=== PATIENT | male | born 1950 | race African-American/Black ===

== ENCOUNTER 2020-07-25 08:46 | Outpatient (CLI) | payer MEDICARE ==
[2020-07-25] VITALS (14 sets, daily range): BP systolic 114–148; BP diastolic 74–99
[~2020-07-25] VITALS: Ht 167.6 cm; Wt 68.9 kg
[2020-07-25] MEDS ORDERED: fentaNYL PF VIAL 100 MCG/2 ML VIAL ONE (09:35)
[2020-07-25] MEDS ORDERED: LIDOCAINE WITH 8.4% SOD BICARB 3 ML DISP.SYRIN. ONE (09:37)
[2020-07-25 09:43] LABS: BASO % 1 % (0-3); EOS % 1 % (0-3); HEMATOCRIT 46.6 % (39.0-53.0); HEMOGLOBIN 15.7 g/dL (13.0-17.5); LYMPH # 1.3 x10^3/uL (1.0-4.8); LYMPH % 29 % (24-48); MEAN CORPUSCULAR HEMOGLOBIN 31 pg (25-35); MEAN CORPUSCULAR HGB CONC 34 g/dL (31-37); MEAN CORPUSCULAR VOLUME 93 fL (79-100); MONO # 0.3 x10^3/uL (0.0-1.1); MONO % 7 % (0-9); NEUT # 2.8 x10^3/uL (1.8-7.7); NEUT % 62 % (31-73); PLATELET COUNT 283 x10^3/uL (140-400); RED BLOOD COUNT 5.03 x10^6/uL (4.30-5.70); RED CELL DISTRIBUTION WIDTH 14.3 % (11.5-14.5); WHITE BLOOD COUNT 4.5 x10^3/uL (4.0-11.0)
[2020-07-25 09:46] LABS: PROTHROMBIN TIME PATIENT 12.4 SEC (11.7-14.0)
[2020-07-25] MEDS ORDERED: MONT10TA49 PO (09:59)
[2020-07-25] MEDS ORDERED: ATOR40TA59 PO (09:59)
[2020-07-25] MEDS ORDERED: TIOT18CA IH (09:59)
[2020-07-25] MEDS ORDERED: BREO ELLIPTA 11 EACH IH (09:59)
[2020-07-25] MEDS ORDERED: SERT100T PO (09:59)
[2020-07-25] MEDS ORDERED: ALBU2.5V8 INH (09:59)
[2020-07-25] MEDS ORDERED: TAMS0.4C97 PO (09:59)
[2020-07-25] MEDS ORDERED: IPRA3AMP29 NEB (09:59)
[2020-07-25] MEDS ORDERED: FLUT9.9S NS (09:59)
[2020-07-25] MEDS ORDERED: OMEP20TA8 PO (09:59)
[2020-07-25] MEDS ORDERED: MIDAZOLAM HCL/PF 2 MG/2 ML VIAL. ONE (10:13)
[2020-07-25] MEDS ORDERED: fentaNYL PF VIAL 100 MCG/2 ML VIAL IV ONE (10:45)
[2020-07-25] MEDS ORDERED: LIDOCAINE WITH 8.4% SOD BICARB 3 ML DISP.SYRIN. IJ ONE (10:45)
[2020-07-25] MEDS ORDERED: MIDAZOLAM HCL/PF 2 MG/2 ML VIAL. IV ONE (10:45)
--- NOTE | 2020-07-25 16:19 | RAD ---
CT-guided biopsy, left upper lobe pulmonary nodule 07/25/2020 Clinical Indication: LEFT UPPER LOBE MASS Discussion: The procedure was explained in its entirety to the patient or the patients designated school admissions representative by a member of the treatment team, including a discussion of the risks, benefits and commonly accepted alternatives to the procedure, as well as the expected consequences of no therapy whatsoever. Discussion of the risks included, but was not limited to, those that are most frequent and those that are rare but possibly severe or life-threatening, as well as the possibility of unforeseen complications. All elements of maximal sterile barrier technique including the use of a cap, mask, sterile gown, sterile gloves, large sterile sheet, appropriate hand hygiene, and 2% chlorhexidine for cutaneous antisepsis (or acceptable alternative antiseptic per current guidelines) were followed for this procedure. CT imaging was obtained redemonstrating a nodule in the left upper lobe concerning for possible malignancy. The overlying skin was prepped and draped as described above. 1% lidocaine was inserted for local anesthesia. Under intermittent CT guidance a 17-gauge needle was advanced into the nodule. Core biopsy samples were obtained. A biosentry device was deployed as the guiding needle was removed. Post biopsy imaging demonstrates mild perilesional hemorrhage and scant pneumothorax. This was stable over several minutes, and subsequent scanning. The patient was transferred to the recovery area in stable condition. Following 2 hour observation. Chest radiograph demonstrates no pneumothorax. Patient remained stable throughout. The procedure was performed under conscious sedation including continuous cardiopulmonary monitoring via dedicated sedation nurse. [id number] sedation time: 25 minutes Impression: CT-guided biopsy left upper lobe mass PQRS Compliance Statement: One or more of the following individualized dose reduction techniques were utilized for this examination: 1. Automated exposure control 2. Adjustment of the mA and/or kV according to patient size 3. Use of iterative reconstruction technique
--- NOTE | 2020-07-25 17:12 | RAD ---
XR CHEST 1V 07/25/2020 12:53 PM INDICATION: Status post lung biopsy COMPARISON: CT chest 06/20/2020 TECHNIQUE: Portable frontal view of the chest is provided. FINDINGS: The cardiomediastinal silhouette is within normal limits. Stable nodular opacity in the left upper lo be projecting over the anterior left third rib. There are no significant pleural effusions. There is no pulmonary vascular congestion. No pneumothora x. No suspicious osseous abnormality. IMPRESSION: Stable nodular opacity projecting over the anterior left there are rib. No pneumothorax. Electronically signed by: Jyotsna Lopez MD (07/25/2020 5:10 PM) [facility]
--- NOTE | 2020-07-27 23:06 | PATHOLOGY ---
[facility] Accession Number: [id number] . 01 Material submitted: . lung - LEFT UPPER LOBE LUNG MASS CORE BIOPSY. Modifiers: left, upper lobe . 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 (SEE COMMENT). 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 02 Comment: Sections show needle core biopsy fragments of alveolated lung tissue with involvement by a malignant neoplasm. There is a moderately differentiated invasive squamous cell carcinoma with focal keratinization. Clinical and radiographic correlation is required. The case is co-reviewed with Dr. Kamila Mckeon. The case will be discussed with Dr. Hawkins and/or his office on 07/31/20. . (CLW:gifty; 07/26/2020) . 02 Electronically signed: . Jessa Cordova MD, Pathologist NPI- [id number] . 01 Gross description: . Received in formalin labeled "Whytus,Myrtie, SAIGE mass" are 3 cylindrical cruz pink core fragments ranging from 0.5-0.7 cm in length each having a diameter of 0.2 cm. Specimen is entirely submitted in cassettes A1-A3.([facility]; 07/25/2020) GZA/GZA 07/25/2020 1830 Local . 02 Pathologist provided ICD-10: C34.12 . 02 CPT . 865289 Specimen Comment: A courtesy copy of this report has been sent to [phone] Specimen Comment: Report sent to Performed at: 01 [facility] [address] [place] [address] [address], [place] [id number] MD Erik Carrasquillo MD Phone: [phone] Performed at: [address] [id number] MD Rigoberto Christian MD Phone: [phone]
== END 2020-07-25 13:30 | disposition home or self-care (01) ==
LOC: INTRAD 08:46
PROVIDERS: ATTEND Internal Medicine Pulmonary Disease
DX: R91.1 Solitary pulmonary nodule (principal); C34.12 Malignant neoplasm of upper lobe, left bronchus or lung; R91.8 Other nonspecific abnormal finding of lung field; J44.9 Chronic obstructive pulmonary disease, unspecified; F17.210 Nicotine dependence, cigarettes, uncomplicated; E78.00 Pure hypercholesterolemia, unspecified; K21.9 Gastro-esophageal reflux disease without esophagitis; F32.9 Major depressive disorder, single episode, unspecified; N40.0 Benign prostatic hyperplasia without lower urinary tract symptoms; Z79.899 Other long term (current) drug therapy; Z51.81 Encounter for therapeutic drug level monitoring
CPT/HCPCS: 32405; 36415; 71045; 77012; 85025; 85610; 99152; 99153; J2250; J3010; J3490

== ENCOUNTER → 2020-09-04 | Outpatient (CLI) | payer MEDICARE ==
[2020-07-25 13:00] VITALS: BP 139/78
[~2020-09-04] MED LIST: ALBU2.5V8 INH; ATOR40TA59 PO; BREO ELLIPTA 11 EACH IH; FLUT9.9S NS; IPRA3AMP29 NEB; MONT10TA49 PO; OMEP20TA8 PO; SERT100T PO; TAMS0.4C97 PO; TIOT18CA IH
[2020-09-04 11:26] LABS: BASO % 1 % (0-3); EOS % 1 % (0-3); HEMATOCRIT 45.3 % (39.0-53.0); LYMPH # 1.4 x10^3/uL (1.0-4.8); LYMPH % 31 % (24-48); MEAN CORPUSCULAR HEMOGLOBIN 31 pg (25-35); MEAN CORPUSCULAR HGB CONC 33 g/dL (31-37); MEAN CORPUSCULAR VOLUME 93 fL (79-100); MONO # 0.4 x10^3/uL (0.0-1.1); MONO % 9 % (0-9); NEUT # 2.6 x10^3/uL (1.8-7.7); NEUT % 59 % (31-73); PLATELET COUNT 254 x10^3/uL (140-400); RED BLOOD COUNT 4.88 x10^6/uL (4.30-5.70); RED CELL DISTRIBUTION WIDTH 14.1 % (11.5-14.5); WHITE BLOOD COUNT 4.4 x10^3/uL (4.0-11.0)
[2020-09-04 11:37] LABS: CALCIUM 9.4 mg/dL (8.5-10.1); GFR 89.1; POTASSIUM 4.2 mmol/L (3.5-5.1)
[2020-09-04 11:42] LABS: ALBUMIN 3.8 g/dL (3.4-5.0); TOTAL BILIRUBIN 0.4 mg/dL (0.2-1.0); TOTAL PROTEIN 7.5 g/dL (6.4-8.2)
== END ==
LOC: ONCLAB 11:03
PROVIDERS: ATTEND Internal Medicine Hematology & Oncology
DX: C34.12 Malignant neoplasm of upper lobe, left bronchus or lung (principal)
CPT/HCPCS: 36415; 80053; 85025

== ENCOUNTER → 2020-09-15 | Outpatient (CLI) | payer MEDICARE ==
[2020-07-25 13:00] VITALS: BP 139/78
[~2020-09-15] MED LIST changes: +GADOTERATE 7.5 MMOL/15ML VIAL. IVP ONE
--- NOTE | 2020-09-15 12:25 | RAD ---
MRI BRAIN WO+W Date: 09/15/2020 10:52 AM Indication: CANCER STAGING, Hx SQUAMOUS CELL LUNG CANCER Comparison: None. Technique: Multiplanar multisequence MRI of the brain was performed with and without intravenous cont rast using the standard protocol. 13 cc Clariscan contrast was administered intravenously during the exam. Findings: No acute infarct. No acute or chronic hemorrhage. The ventricles are normal in size and configuration without hydrocephalus. Mild scattered FLAIR hyperintensities in the subcortical and periventricular deep white matter, a nonspecific finding, most commonly seen with chronic small vessel ischemic disea se. No abnormal enhancement. The scalp and calvarium are normal. The pituitary and sella are normal. No Chiari malformation. The v isualized upper cervical spine is normal. The visualized orbits and globes are normal. The visualized paranasal sinuses are clear. The mastoid air cells are clear. Normal flow voids within the vertebral, basilar, and internal carotid arteries indicating patency. IMPRESSION: No evidence of intracranial metastatic disease. Electronically signed by: Ervin Montoya MD (09/15/2020 12:22 PM) [id number]
--- NOTE | 2020-09-15 18:02 | RAD ---
EXAM: NM PET/CT SKULL BASE TO MID THIGH EXAM DATE: 09/15/2020 INDICATION: Squamous cell carcinoma of the lung. Initial staging. RADIOPHARMACEUTICAL: 14.52 mCi of F-18 Fluorodeoxyglucose (FDG) I.V. via the right antecubital fossa. TECHNIQUE: Patient weight: 151 pounds. Following at least four-hour fasting, the patient's blood gluc ose was 80 mg/dl. Approximately 1 1/2 hours after administration of FDG, overlapping emission scanni ng was performed from the orbital meatal line through the pelvis. A low-dose CT was performed for at tenuation correction purposes and anatomic localization. Fused images of PET and CT were reviewed. A ny standardized uptake values (SUV) reported are maximum values within a volume region of interest, e xpressed in gm/ml. COMPARISON: CT-guided left lung biopsy of 07/25/2020 FINDINGS: PET: In the head and neck, there is asymmetric intraparotid FDG uptake to max SUV of 4.21. In the chest, previously biopsied left upper lobe spiculated pulmonary nodule shows FDG uptake to max SUV of 12.0. No additional abnormal FDG uptake in the chest. In the abdomen and pelvis, there is FDG uptake to max SUV of 3.3 diffuse in the prostate gland. In the bones, no abnormal FDG uptake is identified. CT: In the head and neck, no acute findings on noncontrast CT. In the chest, there has been slight interval enlargement of the spiculated left upper lobe pulmonary nodule from approximately 1.9 x 1.3 cm (image 3 of series 2 on 07/23/2020) to 2.2 x 1.5 cm on image 1 60 series 3 this exam. There is underlying centrilobular pattern emphysema. No mediastinal or hilar a denopathy on noncontrast CT. No pleural effusion. No pneumothorax. In the abdomen and pelvis no mass, adenopathy, fluid collection or ascites. There is mild ectasia of the infrarenal abdominal aorta to 2.3 cm distally. Bowel shows no evidence of obstruction or acute in flammation. The pelvis is enlarged measuring 5.5 cm in transverse diameter. No acute or aggressive appearing osseous lesions. IMPRESSION: 1. Left upper lobe pulmonary nodule showing abnormal FDG uptake to max SUV of 12.0 with no additional findings in the included field of view suspicious for metastatic disease. 2. There is asymmetric FDG uptake in the left parotid gland to max SUV of 4.2 cm that could be inflam matory but correlation with clinical exam. Dedicated imaging by soft tissue neck CT with IV contrast could be considered in further evaluation. Electronically signed by: Mina Almonte MD (09/15/2020 6:00 PM) [id number]
== END ==
LOC: MRI 10:33
PROVIDERS: ATTEND Internal Medicine Hematology & Oncology
DX: C34.12 Malignant neoplasm of upper lobe, left bronchus or lung (principal); J43.2 Centrilobular emphysema; I77.811 Abdominal aortic ectasia; M89.38 Hypertrophy of bone, other site
CPT/HCPCS: 70553; 78815; A9552; A9575

== ENCOUNTER → 2021-03-02 | Outpatient (CLI) | payer MEDICARE ==
[2020-07-25 13:00] VITALS: BP 139/78
[~2021-03-02] MED LIST changes: -GADOTERATE 7.5 MMOL/15ML VIAL. IVP ONE
--- NOTE | 2021-03-02 14:12 | RAD ---
NM PET/CT SKULL BASE TO MID THIGH Clinical Indication: Restaging lung cancer. Comparison: CT September 15, 2020 Technique: Patient blood glucose at the time of injection is 89 mg/dL. The patient was administered 1 4.5 mCi of F-18 FDG intravenously. The patient rested quietly during a 60 minute uptake period. Then PET imaging from the skull base to the upper thighs was performed. A noncontrast CT was acquired over this same area. The CT is for attenuation correction and anatomic localization, it is not of diagnos tic quality and is not intended to diagnose disease independently of the PET. PQRS Compliance Statement: One or more of the following individualized dose reduction techniques were utilized for this examinat ion: 1. Automated exposure control 2. Adjustment of the mA and/or kV according to patient size 3. Use of iterative reconstruction technique Findings: Background: Mediastinal SUV max: 2.56 Liver SUV max: 2.96 Head and neck: Persistent hypermetabolic focus within the left parotid gland SUV max 3.96. No hypermetabolic cervica l lymphadenopathy. Chest: Decreased left upper lobe nodule measures 1.6 x 0.9 cm with SUV max 1.9 to compared to 2.1 x 1.5 cm w ith SUV max 12. 2 mm right upper lobe pulmonary nodule (series 3 image 146), unchanged. 3 mm right lo wer and middle lobe fissure-based nodule (image 178), unchanged. Pulmonary emphysema. No consolidation or pleural effusion. No pneumothorax. No pathologic lymphadenop athy within the chest. Abdomen and pelvis: The liver, spleen, adrenal glands, pancreas and gallbladder are unremarkable. No hydronephrosis. Punc pink nonobstructing left intrarenal calculus. Normal appendix. No evidence of bowel obstruction. No pathologic lymphadenopathy. No ascites. Enlarge d prostate measures 5.3 x 4.8 cm. Ectasia of the infrarenal abdominal aorta measures up to 2.3 cm. At heromatous plaque throughout. Musculoskeletal: There is no evidence of FDG-avid disease. IMPRESSION: 1. Decreased left upper lobe pulmonary nodule with decreased metabolic activity, compatible with int erval treatment response. 2. Hypermetabolic focus within the left parotid gland. Recommend ultrasound to evaluate for underlyi ng lesion. Electronically signed by: Dell Toure DO (03/02/2021 2:09 PM) [id number]
== END ==
LOC: PETSC 10:48
PROVIDERS: ATTEND Radiology Radiation Oncology
DX: C34.12 Malignant neoplasm of upper lobe, left bronchus or lung (principal); R91.8 Other nonspecific abnormal finding of lung field; J43.9 Emphysema, unspecified; N20.0 Calculus of kidney; N40.0 Benign prostatic hyperplasia without lower urinary tract symptoms; I77.811 Abdominal aortic ectasia
CPT/HCPCS: 78815; A9552

== ENCOUNTER → 2021-09-11 | Outpatient (CLI) | payer MEDICARE ==
[2020-07-25 13:00] VITALS: BP 139/78
--- NOTE | 2021-09-11 15:57 | RAD ---
EXAM: Neck sonogram. HISTORY: Abnormal left parotid gland on PET/CT. TECHNIQUE: Sonographic imaging of the left parotid gland was performed. COMPARISON: PET/CT dated 03/02/2021. FINDINGS: There is a solid circumscribed hypoechoic nodule with internal blood flow within the superf icial left parotid gland measuring 1.5 x 1.2 x 0.7 cm. This appears to contain an eccentric echogenic component, favoring a lymph node with thickened cortex. There is an adjacent smaller suspected intra parotid lymph node with prominent cortex measuring 1.2 x 0.9 x 0.4 cm. There is a third benign intrap arotid lymph node with thin cortex and fatty hilum measuring 1.3 x 1.1 x 0.5 cm. IMPRESSION: 1.5 cm left parotid nodule, the appearance of which favors an abnormal lymph node with th ickened cortex. This may be reactive or neoplastic in etiology. This corresponds with the region of f ocal increased radiotracer activity on the prior PET/CT. There is an adjacent smaller nonspecific lym ph node which also demonstrates a prominent cortex. Electronically signed by: Tameka Skinner MD (09/11/2021 3:54 PM) [id number]
--- NOTE | 2021-09-11 16:12 | RAD ---
EXAM: Chest CT without intravenous contrast. HISTORY: Squamous cell lung cancer. TECHNIQUE: Computed tomographic images of the chest were obtained without contrast. Multiplanar refor matting was performed. *One or more of the following individualized dose reduction techniques were utilized for this examina tion: 1. Automated exposure control. 2. Adjustment of the mA and/or kV according to patient size. 3. Use of iterative reconstruction technique. COMPARISON: 06/20/2020. FINDINGS: The heart is normal in size. The aorta is normal in caliber. There is coronary artery calci fication. There is mild gynecomastia. There are stable nonspecific mediastinal and hilar lymph nodes. There is no pneumothorax or pleural effusion. There is linear scarring with architectural distortion within the anterior left upper lobe. There is emphysema. There is a new 3 mm groundglass nodular opacity within the anterior right upper lobe (seri es 3, image 23). There is a stable 4 mm nodule along the right minor fissure (series 3, image 37). Th ere is a 1.8 cm irregular groundglass opacity likely due to scarring within the anterior medial right upper lobe. There is mild bronchiectasis. There is right lower lobe predominant bronchial wall thick ening. There is no acute finding involving the upper abdomen. There is a 4 mm nonobstructing left renal ston e. There are degenerative changes involving the spine. IMPRESSION: 1. Linear scarring and architectural distortion within the left upper lobe likely due to interval par tial lung resection. The previously demonstrated cavitary lesion in this location is no longer seen. 2. 3 mm and 4 mm nodules within the right lung, one of which may be a fissural lymph node. Attention at the time of follow-up is recommended. 3. Emphysema. 4. Bronchiectasis and right lower lobe predominant bronchial wall thickening, suggesting bronchitis. Electronically signed by: Tameka Skinner MD (09/11/2021 4:09 PM) [id number]
== END ==
LOC: CT 14:24
PROVIDERS: ATTEND Radiology Radiation Oncology
DX: C34.12 Malignant neoplasm of upper lobe, left bronchus or lung (principal); K11.8 Other diseases of salivary glands; R91.8 Other nonspecific abnormal finding of lung field; J43.9 Emphysema, unspecified; J47.9 Bronchiectasis, uncomplicated; N62 Hypertrophy of breast; I25.10 Atherosclerotic heart disease of native coronary artery without angina pectoris; N20.0 Calculus of kidney; M47.819 Spondylosis without myelopathy or radiculopathy, site unspecified
CPT/HCPCS: 71250; 76536